=== PATIENT | female | born 1985 | race Caucasian/White ===

== ENCOUNTER 2019-04-16 13:00 | Inpatient (IN) | payer OTHER ==
[~2019-04-16] VITALS: Ht 167.6 cm; Wt 74.8 kg
[2019-05-12] MEDS ORDERED: PRENATAL + DHA1 EAC1 PO (10:08)
[2019-05-12] MEDS ORDERED: FERROCITE PLUS1 EACH PO (10:09)
== END 2019-05-14 11:01 | disposition home or self-care (01) | DRG 807 ==
LOC: O/R 13:00 → OB/GYN 05-10 13:00 → LDR 05-12 10:00 → OB/GYN 05-12 15:01
PROVIDERS: ADMIT Obstetrics & Gynecology
PROC: 10E0XZZ Delivery of Products of Conception, External Approach (ICD-10-PCS; principal; 2019-05-12)
PROC: 0KQM0ZZ Repair Perineum Muscle, Open Approach (ICD-10-PCS; 2019-05-12)
PROC: 0W8NXZZ Division of Female Perineum, External Approach (ICD-10-PCS; 2019-05-12)
PROC: 10907ZC Drainage of Amniotic Fluid, Therapeutic from Products of Conception, Via Natural or Artificial Opening (ICD-10-PCS; 2019-05-12)
PROC: 4A1HXCZ Monitoring of Products of Conception, Cardiac Rate, External Approach (ICD-10-PCS; 2019-05-12)
DX: O70.1 Second degree perineal laceration during delivery (principal); Z37.0 Single live birth; Z3A.40 40 weeks gestation of pregnancy

== ENCOUNTER 2019-05-10 10:25 | Outpatient (CLI) | payer OTHER | END 2019-05-10 11:09 | disposition home or self-care (01) | LOC: NST 10:25 | DX: Z34.83 Encounter for supervision of other normal pregnancy, third trimester (principal) ==